=== PATIENT | male | born 1985 | race African-American/Black ===

== ENCOUNTER → 2024-09-22 | Emergency (ER) | payer OTHER ==
[~2024-09-22] VITALS: Ht 182.9 cm; Wt 81.6 kg
[~2024-09-22] MED LIST: DEXAMETHASONE SODIUM PHOSPHATE 4 MG/ML VIAL IM STA; KETOROLAC TROMETHAMINE 30 MG VIAL IM STA
== END | disposition home or self-care (01) ==
LOC: ER 18:58
DX: G56.02 Carpal tunnel syndrome, left upper limb (principal)